=== PATIENT | female | born 1935 | race Caucasian/White ===

== ENCOUNTER 2021-05-02 08:41 | Inpatient (IN) | payer OTHER ==
[~2021-05-02] VITALS: Ht 162.6 cm; Wt 88.9 kg
--- NOTE | ~2021-05-02 | EMS ---
[place] [address] EMS Patient Care Report Name: MADHU WORKMAN Room #: 440-P [facility] IN M.R.#: [id number] Admission: 05/02/21 Attend Phys: Kendrick Og MD Discharge: 05/04/21 Date of : 37 Report #: [id number] THIS REPORT FOR: //name// Report Transmitted: 05/06/2021 13:07 EMS Care Summary [place], [place]/[facility] Incident [id number] @ 05/02/2021 08:07 Incident Location [address] [place] [address] Patient JUDITH WORKMAN Female, 85 Years 1935 Patient Address [address] [place] [address] Patient History Hyperlipidemia,Atrial Fibrillation,Hypotension,Hypothyroidism, Patient Allergies Sulfa, Patient Medications Unknown, Chief Complaint N/V, FEVER,CHILLS, WEAKNESS, AND MALAISE Disposition Transported No Lights/[place] Dispatch Reason Sick Person Transported To [facility] Narrative UPON ARRIVAL WE FOUND OUR 85 YEAR OLD FEMALE PATIENT LAYING IN THE BACK BEDROOM OF A RESIDENCE WITH FAMILY BY HER SIDE COMPLAINING OF N/V, DYSURIA, FEVER, CHILLS, WEAKNESS, AND MALAISE X 2 DAYS. THE PATIENT IS FULLY VACCINATED AND BOOSTED WITH THE MODERNA VACCINE AND HAS HAD NO [place] [address] EMS Patient Care Report Name: MADHU WORKMAN Room #: 440-P [facility] IN M.R.#: [id number] Admission: 05/02/21 Attend Phys: Kendrick Og MD Discharge: 05/04/21 Date of : 37 Report #: [id number] PATIENT WENT TO [facility] LAST NIGHT, BUT SHE LEFT [facility] AFTER WAITING 6 HRS TO BE SEEN. THE PATIENT REQUESTS TRANSPORT TO [facility] TO SEE IF THE WAIT IS SHORTER THERE. Initial Vitals @08:24P: 102,R: 18,BP: 186/90,Pain: 0/10,GCS: 15,SpO2: 94,Revised Trauma: 12, @08:37P: 100,R: 18,BP: 188/90,Pain: 0/10,GCS: 15,SpO2: 93,Revised Trauma: 12, Assessments @08:18MENTAL:Event Oriented,Time Oriented,Place Oriented,Person Oriented,SKIN:Hot,HEENT:Eyes: Left Pupil: 4-mm,Eyes: Right Pupil: 4-mm,Head/Face: No Abnormalities,Neck/Airway: No Abnormalities,LUNG SOUNDS:General: Nausea,General: Vomiting,ABDOMEN:General: Nausea,General: Vomiting,PELVIS//GI:Pelvis GUOther,EXTREMITIES:Left Arm: No Abnormalities,Right Arm: No Abnormalities,Left Leg: No Abnormalities,Right Leg: No Abnormalities,PULSE:Radial: 2+ Normal,NEURO:No Abnormalities, Impression Fever Procedures @08:18 ALS Assessment Response: UnchangedSucceeded Timeline 08:05,Call Received 08:05,Dispatch Notified 08:07,Dispatched 08:07,En Route 08:16,On Scene 08:18,At Patient 08:18,ALS Assessment,Response: UnchangedSucceeded, 08:24,BP: 186/90 M,PULSE: 102,RR: 18 R,SPO2: 94 Ox,ETCO2: ,BG: ,PAIN: 0,GCS: 15, 08:26,Depart Scene 08:37,BP: 188/90 M,PULSE: 100,RR: 18 R,SPO2: 93 Ox,ETCO2: ,BG: ,PAIN: 0,GCS: 15, 08:46,At Destination 08:49,Call Closed Disclaimer v1.1 Copyright 2021 [employer] This EMS Care Summary contains data elements from the applicable legal record (which may be displayed differently). It is designed to provide pertinent information for the following purposes: continuity of care, clinical quality, and state data reporting. The complete [place] [address] EMS Patient Care Report Name: MADHU WORKMAN Room #: 440-P [facility] IN M.R.#: [id number] Admission: 05/02/21 Attend Phys: Kendrick Og MD Discharge: 05/04/21 Date of : 37 Report #: [id number] and administrators of the receiving hospital in ES's Patient Tracker. All data is provided "as is."
[2021-05-02 08:42] VITALS: BP 132/70
[2021-05-02 09:02] LABS: ABSOLUTE NEUTROPHILS 6.7 thou/uL (1.4-8.2); BASOPHILS 0.2 % (0.0-2.0); EOSINOPHILS 0.1 % (0.0-3.0); HEMATOCRIT 39.3 % (37.0-47.0); HEMOGLOBIN 13.3 gm/dL (12.0-15.0); LYMPHOCYTES 5.1 % (24.0-44.0); MCH 30.7 pg (26.0-34.0); MCHC 33.8 g/dL (28.0-37.0); MCV 90.9 fL (80.0-100.0); MONOCYTES 5.9 % (1.0-8.0); PLATELET COUNT 138 thou/uL (150-400); POLYS 88.7 % (36.0-66.0); RBC 4.33 mil/uL (4.20-5.00); RDW 14.2 % (10.5-14.5); WBC 7.6 thou/uL (4.0-11.0)
[2021-05-02 09:07] LABS: CALCIUM 9.4 mg/dL (8.5-10.1); CREATININE 1.4 mg/dL (0.6-1.0); POTASSIUM 3.7 mmol/L (3.5-5.1)
[2021-05-02 09:08] LABS: URINE BILIRUBIN NEGATIVE (Negative); URINE BLOOD 3+ (Negative); URINE CLARITY CLOUDY; URINE COLOR YELLOW; URINE GLUCOSE-RANDOM* NEGATIVE (Negative); URINE KETONES NEGATIVE (Negative); URINE PROTEIN (DIPSTICK) 1+ (Negative); URINE SPECIFIC GRAVITY 1.025 (1.005-1.035); URINE UROBILINOGEN 0.2 E.U./dl (0.2-1.0)
[2021-05-02 09:09] LABS: URINE LEUKOCYTES-REFLEX 2+ (Negative); URINE NITRITE-REFLEX POSITIVE (Negative)
[2021-05-02 09:14] LABS: ALBUMIN 3.8 g/dL (3.4-5.0); TOTAL BILIRUBIN 1.4 mg/dL (0.2-1.0); TOTAL PROTEIN 7.8 g/dL (6.4-8.2)
[2021-05-02] MEDS ORDERED: VAZALORE81 MG PO (09:22)
[2021-05-02 09:28] LABS: SQUAMOUS 0-3 Few /LPF (0-3); URINE WBC-REFLEX >25 Many /HPF (0-5)
[2021-05-02 09:29] LABS: BACTERIA-REFLEX >30 Many /HPF (None Seen); CASTS None Seen /LPF (None Seen); CRYSTALS None Seen /LPF (None Seen)
[2021-05-02 10:28] LABS: BE(vivo) -1.7 mmol/L (-2 to +3); HCO3 21.9 mmol/L (22.0-26.0); PCO2 33.8 mmHg (35.0-45.0); PO2 66.1 mmHg (80.0-100.0); sO2 93.8 % (92.0-98.0)
--- NOTE | 2021-05-02 12:26 | EKG ---
[address] [place] [address] ELECTROCARDIOGRAM REPORT Name: MADHU WORKMAN Room #: 170-8 ADM IN M.R.#: [id number] Admission: 05/02/21 Attend Phys: Kendrick Og MD Discharge: Date of : 37 Report #: [id number] [facility] ED Test Date: 2021-05-02 Test Time: 08:46:56 Pat Name: MADHU WORKMAN Department: Room: 170 Gender: F Gutter Mouth Cutter: : 1935 Requested By: Oswald Oviedo Order Number: [id number] MD: Jese Plascencia Measurements Intervals [place] Rate: 94 P: 68 ME: 181 QRS: -38 QRSD: 99 T: 36 QT: 386 QTc: 483 Interpretive Statements Sinus rhythm Left axis deviation Abnormal R-wave progression, early transition Borderline prolonged QT interval Baseline wander in lead(s) I,II,aVR,V2 Compared to ECG 04/06/2000 03:14:05 Left-axis deviation now present Atrial premature complex(es) no longer present Electronically Signed On 05-02-2021 12:26:22 [employer]EEPING [employer] WORK[employer] by Jese Plascencia [email or web address] <ELECTRONICALLY SIGNED> By: Jese Plascencia MD, [facility] 05/02/21 [id number] [phone] Jese Plascencia MD, [facility] /EPI
[2021-05-02 14:00] VITALS: BP 118/57
[2021-05-02 15:25] VITALS: BP 117/62
--- NOTE | 2021-05-02 17:18 | NUR ---
ASSUMED PATIENT FROM ED AT 1630. PATIENT ABLE TO TRANSFER TO BED ON HER OWN WITH STANDBY ASSIST. NO COMPLAINTS OF PAIN OR N/V. AT THIS TIME PATIENT SHE HUNGERY AND WANTED TO MAKE SURE SHE COULD GET SOME DINNER. RESTARTED IV FLUIDS AND REDRESSED IV DRESSING. PATIENT PLACED ON TELEMERTY SR. WILL CONTINUE TO MONITOR
[2021-05-02 20:00] VITALS: BP 109/63
[2021-05-03 03:40] LABS: HEMATOCRIT 35.7 % (37.0-47.0); HEMOGLOBIN 11.8 gm/dL (12.0-15.0); MCH 30.7 pg (26.0-34.0); MCHC 33.1 g/dL (28.0-37.0); MCV 92.8 fL (80.0-100.0); RBC 3.85 mil/uL (4.20-5.00)
[2021-05-03 03:48] LABS: CALCIUM 8.2 mg/dL (8.5-10.1); CREATININE 1.5 mg/dL (0.6-1.0); POTASSIUM 3.6 mmol/L (3.5-5.1)
--- NOTE | 2021-05-03 07:50 | NUR ---
RECEIVED CARE OF THIS PATIENT AT 1900. PATIENT ALERT AND ORIENTED X4. VERY ANXIOUS. FOUND HOME MEDS IN ROOM AND TOOK TO PHARMACY. EXPLAINED TO PATIENT THAT SHE CAN NOT TAKE HER MEDS WITHOUT THEM BEING CHECKED BY PHARMACY. APPREHENSIVE ABOUT THAT. EXPLAINED THAT THE MEDS WERE IN A SEALED BAG AND IN THE PHARMACY AND SHE WOULD GET THEM BACK WHEN SHE LEAVES. SHOWED HER THE RECEIPT IN HER CHART FOR HER MEDS. SHE STATED THAT SHE FELT BETTER. PATIENT UP WITH ONLY SBA PER HER REQUEST. IV IN LAC PATENT WITH FLUIDS INFUSING. C/O HEADACHE. HAD NOTHEING ORDERED AND JUST WANTED AN ICE BAG. STILL HAD HEADACHE THIS AM, MED ORDERED AND GIVEN. SLEPT OFF AND ON DURING NIGHT.
[2021-05-03 08:15] VITALS: BP 125/72
--- NOTE | 2021-05-03 09:30 | NUR ---
ORDERS FOR EVAL AND TREAT. SPOKE WITH Pt WHO STATES SHE JUST SAW O.T. AND GOT UP WITHOUT DIFFICULTY. STATES SHE DOES NOT FEEL WEAK OR OFF BALANCE. Pt DECLINING FORMAL P.T. EVAL BUT SOUNDS LIKE SHE IS MOVING WELL
[2021-05-03 11:35] VITALS: BP 126/85
[2021-05-03 16:00] VITALS: BP 121/75
--- NOTE | 2021-05-03 16:15 | NUR ---
Patient resting in bed comfortably, tylenol given for headache. ax0x4, up independently, call light within reach, will continous monitoring.
--- NOTE | 2021-05-03 16:34 | NUR ---
met with patient who admits with pylonnephritis. Patient lives in independent home. She has steps in her home to her home office. she reports prev hoff injury and goes up steps carefully. 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 She cooks. She is independent with adls and does not use any assistive devise. She reports her 2 children live next door and help with anything she needs assist with at home. Patient anticipates and plans to dc home with no needs from casemgt.
[2021-05-03 19:08] VITALS: BP 146/88
--- NOTE | 2021-05-04 05:40 | NUR ---
RECEIVED CARE OF THIS PATIENT AT 1900. PATIENT ALERT AND ORIENTED X4. UP TO BATHROOM WITH SBA. DENIES PAIN. SLEPT MOST OF NIGHT.
[2021-05-04 08:17] VITALS: BP 144/85
--- NOTE | 2021-05-04 10:16 | NUR ---
Assumed care of pt at 0700. Pt a&ox4. C/o headache. Medication admistered and relief obtained. Up ad nalini. IV antibiotics infusing. Call light within reach. Will continue to monitor.
[2021-05-04] MEDS ORDERED: KEFLEX250 MG PO (11:12)
[2021-05-04 11:32] VITALS: BP 144/85
== END 2021-05-04 13:50 | disposition home or self-care (01) | DRG 689 ==
LOC: ER 08:41 → 4S 10:52 → EROBS 10:52 → 4S 16:57
PROVIDERS: Emergency Medicine; ADMIT Hospitalist; ATTEND Hospitalist
DX: N12 Tubulo-interstitial nephritis, not specified as acute or chronic (principal); R65.11 Systemic inflammatory response syndrome (SIRS) of non-infectious origin with acute organ dysfunction; N17.9 Acute kidney failure, unspecified; Z20.822 Contact with and (suspected) exposure to COVID-19; I48.91 Unspecified atrial fibrillation; E78.00 Pure hypercholesterolemia, unspecified; I10 Essential (primary) hypertension; E78.5 Hyperlipidemia, unspecified; E03.9 Hypothyroidism, unspecified; B96.20 Unspecified Escherichia coli [E. coli] as the cause of diseases classified elsewhere; Z79.82 Long term (current) use of aspirin; Z79.899 Other long term (current) drug therapy; Z90.710 Acquired absence of both cervix and uterus; Z88.2 Allergy status to sulfonamides
CPT/HCPCS: 10100